=== PATIENT | female | born 1955 | race Caucasian/White ===

== ENCOUNTER 2017-02-27 08:30 | Emergency (ER) | payer SELFPAY ==
--- NOTE | 2017-02-27 09:16 | RAD ---
Indication: RIGHT mid anterior rib pain worse with inspiration and movement. Preceding injury. Comparison: No relevant prior exams available on the [facility] for comparison. Technique: Dual energy PA chest and 4 view RIGHT unilateral rib series. Report: No RIGHT rib fracture or pneumothorax evident. Bilateral nipple shadows noted. Clear lungs and pleural spaces. The heart, pulmonary vasculature, and mediastinal contours are unremarkable. Unremarkable soft tissue contours. IMPRESSION: Negative exam.
[2017-02-27] MEDS ORDERED: Ketorolac INJ* 60 MG/2 ML VIAL IM ONE (09:50)
--- NOTE | 2017-02-27 10:17 | ED ---
chalino Dhillon Timothy, scribed for Elliot Fulton MD on 02/27/17 at 0844 . HPI Chest Pain - HPI Summary HPI Summary: Allie Meehan is a 61 yo female presenting to [facility] with 10/10 right sided rib pain. Pt states she got her rib caught on a recycling bin and felt the rib move 02/24, and the pain has gradually increased since then. Pt states that her pain is not so bad when she is at rest, but as soon as she moves she experiences a shooting pain. She denies any N/V/D or other Sx. She has not self-medicated [employer]. Her MHx includes hysterectomy, bilateral carpal tunnel surgery, and left knee meniscus surgery. - History of Current Complaint Chief Complaint: EDChestWallPain Time Seen by Provider: 02/27/17 08:58 Hx Obtained From: Patient Onset/Duration: Started Days Ago, Still Present Time of Onset: 09:00 Timing: Constant Initial Severity: Moderate Current Severity: Moderate Pain Intensity: 10 Pain Scale Used: 0-10 Numeric Chest Pain Location: Discrete at: - right rib Chest Pain Radiates: No Aggravating Factor(s): Exertion, Position, Movement Alleviating Factor(s): Rest Associated Signs and Symptoms: Positive: Chest Pain PMH/Surg Hx/FS Hx/Imm Hx Endocrine/Hematology History: Reports: Hx Thyroid Disease - hypothyroidism Cardiovascular History: Reports: Hx Hypertension Musculoskeletal History: Denies: Hx Osteoporosis - Cancer History Hx Chemotherapy: No Hx Radiation Therapy: No - Surgical History Surgery Procedure, Year, and Place: HYSTERECTOMY '99, CARPAL TUNNEL BI-LAT; LT KNEE MENISCUS SURGERY Infectious Disease History: No Infectious Disease History: Denies: Traveled Outside the [place] in Last 30 Days - Family History Known Family History: Positive: Cardiac Disease, Diabetes, Other - skin CA - Social History Lives: With Family Alcohol Use: Rare Hx Substance Use: No Substance Use Type: Reports: None Hx Tobacco Use: No Smoking Status (MU): Never Smoked Tobacco Review of Systems Constitutional: Negative Eyes: Negative ENT: Negative Positive: Chest Pain - right rib Respiratory: Negative Gastrointestinal: Negative Genitourinary: Negative Musculoskeletal: Negative Skin: Negative Neurological: Negative Psychological: Normal All Other Systems Reviewed And Are Negative: Yes Physical Exam - Summary Physical Exam Summary: VITAL SIGNS: Reviewed. GENERAL: Patient is a well-developed and nourished female who is lying comfortable in the stretcher. Patient is not in any acute respiratory distress. HEAD AND FACE: No signs of trauma. No ecchymosis, hematomas or skull depressions. No sinus tenderness. EYES: PERRLA, EOMI x 2, No injected conjunctiva, no nystagmus. EARS: Hearing grossly intact. Ear canals and tympanic membranes are within normal limits. MOUTH: Oropharynx within normal limits. NECK: Supple, trachea is midline, no adenopathy, no JVD, no carotid bruit, no c- spine tenderness, neck with full ROM. CHEST: Symmetric, tenderness to palpation at the mid-clavicular line of the 7th rib. LUNGS: Clear to auscultation bilaterally. No wheezing or crackles. CVS: Regular rate and rhythm, S1 and S2 present, no murmurs or gallops appreciated. ABDOMEN: Soft, non-tender. No signs of distention. No rebound no guarding, and no masses palpated. Bowel sounds are normal. EXTREMITIES: FROM in all major joints, no edema, no cyanosis or clubbing. NEURO: Alert and oriented x 3. No acute neurological deficits. Speech is normal and follows commands. SKIN: Dry and warm Triage Information Reviewed: Yes Vital Signs On Initial Exam: Initial Vitals Temp Pulse Resp BP Pulse Ox 97.3 F 77 18 161/65 100 02/27/17 08:32 02/27/17 08:32 02/27/17 08:32 02/27/17 08:32 02/27/17 08:32 Vital Signs Reviewed: Yes Diagnostics - Vital Signs Vital Signs Temp Pulse Resp BP Pulse Ox 02/27/17 08:32 97.3 F 77 18 161/65 100 - Laboratory Lab Statement: Any lab studies that have been ordered have been reviewed, and results considered in the medical decision making process. - Radiology Ribs w. CXR Xray Interpretation: No Acute Changes - Impression: negative exam Radiology Interpretation Completed By: Radiologist Re-Evaluation - Re-Evaluation First Eval Re-Evaluation Time: 10:06 Change: Unchanged Comment: Discussed results of imaging study with Pt and answered questions to her satisfaction. She is agreeable to be discharged. Chest Pain Course/Dx - Course Assessment/Plan: Allie Meehan is a 61 yo female presenting to [facility] with 10/10 right rib pain S/P catching it on a recycling bin and "feeling it move" . CXR impression by radiology: Negative exam. Patient was given Toradol for the pain and she reports feeling much improved. I have no suspicion for liver laceration since patient has no tenderness in the RUQ, and VS are stable. I discussed all the findings and test results with the patient. Patient was instructed to return to the emergency room immediately if any of the symptoms return or worsens. Plan of care was discussed with the patient and understands and agrees. All questions were answered at patient satisfaction. There were no further complaints or concerns. Lung exam before discharge: CTA B/L. Good air exchange. No wheezing or crackles heard. CVS: S1 and S2 present. No murmurs appreciated. Patient is alert and oriented x 3. Patient is hemodynamically stable. Patient will be discharged home with follow up PCP in the next 2-3 days - Chest Pain Differential Diagnosis/HQI/PQRI: Other: - RIb fracture, rib contusion - Diagnoses Provider Diagnoses: Contusion of ribs Discharge - Discharge Plan Condition: Stable Disposition: HOME Patient Education Materials: Rib Contusion (ED) Forms: *Work Release Referrals: Eloisa Evans MD [Primary Care Provider] - 2 Days Additional Instructions: Please follow up with your primary care physician regarding your visit to the emergency department today. Return to the emergency department with any new or recurring symptoms. The documentation as recorded by the chalino coburn Timothy accurately reflects the service I personally performed and the decisions made by me, Elliot Fulton MD.
[2017-02-27 10:57] VITALS: BP 178/75
== END 2017-02-27 11:23 | disposition home or self-care (01) ==
LOC: ED 08:30
DX: S20.211A Contusion of right front wall of thorax, initial encounter (principal); W22.8XXA Striking against or struck by other objects, initial encounter; Y92.9 Unspecified place or not applicable; E03.9 Hypothyroidism, unspecified; I10 Essential (primary) hypertension
CPT/HCPCS: 96372; 99281; J1885